=== PATIENT | female | born 1960 | race Caucasian/White ===

== ENCOUNTER 2016-10-18 05:24 | Day surgery (SDC) | payer OTHER ==
[2016-10-16 11:32] LABS: APPEARANCE,URINE SLIGHTLY-CLOUDY; BILIRUBIN,URINE NEGATIVE (NEGATIVE); GLUCOSE, URINE NEGATIVE (NEGATIVE); KETONES,URINE NEGATIVE (NEGATIVE); LEUKOCYTE ESTERASE,URINE NEGATIVE (NEGATIVE); NITRITE,URINE NEGATIVE (NEGATIVE); PROTEIN,URINE NEGATIVE (NEGATIVE); URINE SPECIFIC GRAVITY 1.021; UROBILINOGEN,URINE NEGATIVE mg/dL (<2.0)
[2016-10-16 12:30] LABS: HEMATOCRIT 37.2 % (36.0-47.0); HEMOGLOBIN 12.4 g/dL (12.0-15.5); MEAN CORPUSCULAR HEMOGLOBIN 30.6 pg (27.0-33.4); MEAN CORPUSCULAR HGB CONC 33.4 g/dL (32.0-36.0); MEAN CORPUSCULAR VOLUME 92 fl (80-97); RED BLOOD COUNT 4.06 10^6/uL (3.72-5.28); RED CELL DISTRIBUTION WIDTH 13.5 % (11.5-14.0); WHITE BLOOD COUNT 4.3 10^3/uL (4.0-10.5)
[2016-10-16 13:00] LABS: ANION GAP 8 (5-19); BLOOD UREA NITROGEN 15 mg/dL (7-20); CALCIUM 8.9 mg/dL (8.4-10.2); CARBON DIOXIDE 27 mmol/L (22-30); CHLORIDE 104 mmol/L (98-107); CREATININE RESULT 0.76 mg/dL (0.52-1.25); GLUCOSE 81 mg/dL (75-110); POTASSIUM 4.8 mmol/L (3.6-5.0)
--- NOTE | 2016-10-16 16:58 | EKG REPORT ---
SEVERITY:- OTHERWISE NORMAL ECG - SINUS RHYTHM LEFT AXIS DEVIATION : Confirmed by: Jade Crowder MD 16-Oct-2016 16:57:30
[~2016-10-18 05:24] MED LIST: CLINDAMYCIN 600 MG/D5W RTU 600 MG/50 ML RTUPB IV PRN; LIDOCAINE 0.5% INJ-PF (5 MG/ML) 50 ML SDV INJ PRN; RINGERS SOLUTION,LACTATED 1,000 ML IV PRN
[2016-10-18] MEDS ORDERED: EPHEDRINE SULFATE INJ 50 MG/1 ML AMPULE ONE (07:15)
[2016-10-18] MEDS ORDERED: FENTANYL CITRATE INJ/PF 100 MCG/2 ML AMPUL ONE (07:15)
[2016-10-18] MEDS ORDERED: ONDANSETRON HCL INJ/PF 4 MG/2 ML SDV ONE (07:15)
[2016-10-18] MEDS ORDERED: PROPOFOL INJ 200 MG/20 ML VIAL IV ONE (07:15)
[2016-10-18] MEDS ORDERED: MIDAZOLAM 2 MG/2 ML INJ ONE (07:15)
[2016-10-18] MEDS ORDERED: MEPERIDINE HCL/PF INJ 25 MG/1 ML DISP.SYRIN IV PRN (07:39)
[2016-10-18] MEDS ORDERED: DIPHENHYDRAMINE HCL 50 MG/ML VIAL IV PRN (07:39)
[2016-10-18] MEDS ORDERED: PROMETHAZINE HCL INJ 25 MG/1 ML VIAL IV PRN (07:39)
[2016-10-18] MEDS ORDERED: FENTANYL CITRATE INJ/PF 100 MCG/2 ML AMPUL IV PRN ×3 (07:39)
[2016-10-18] MEDS ORDERED: OXYCODONE-ACETAMINOPHEN 5-325 MG TABLET PO PRN ×2 (08:11→08:12)
[2016-10-18] MEDS ORDERED: PROMETHAZINE HCL INJ 25 MG/1 ML VIAL IM PRN (08:13)
--- NOTE | 2016-10-18 08:33 | OPERATIVE REPORT E ---
Operative Report NAME: KATTY LLOYD : 1960 AGE: 55Y DATE OF SURGERY: 10/18/2016 ROOM: PREOPERATIVE DIAGNOSES: 1. Menorrhagia. 2. Left endometrial polyp. POSTOPERATIVE DIAGNOSES: 1. Menorrhagia. 2. Left endometrial polyp. PROCEDURE: Hysteroscopy, dilatation and curettage. SURGEON: ALIYA EDWARDS M.D. COMPLICATIONS: None. ANESTHESIA: LMA. ESTIMATED BLOOD LOSS: Fifteen mL. FINDINGS: Posterior endometrial polyp, approximately 7 mm in diameter. No other lesions or issues were noted in the uterus. Normal tubal ostia appreciated. No adnexal masses were noted on EUA. Bladder was left undrained. INDICATION FOR PROCEDURE: The patient had progressive dysmenorrhea and menorrhagia. Ultrasound demonstrated what appeared to be a large endocervical polyp present. Outpatient biopsy was benign. Pap smear normal. The usual risks of bleeding, infection, anesthesia, and damage to organs and tissue were discussed with the patient and understood. PROCEDURE: The patient was taken to the operating room, placed in the modified lithotomy position. Adequate anesthesia was ascertained. Prepped and draped in the usual manner for a hysteroscopy. After surgical timeout performed, EUA performed. The cervix was dilated to admit operative hysteroscope. Hysteroscopy ensued. This revealed essentially normal upper uterus. In the endometrial cavity, a small endometrial polyp was noted in the lower portion of the cavity. Photographs were taken and biopsy ensued with curettage. It was productive of a mild amount of tissue and sent to the lab. Upon completion of this, all instruments were removed. Uterine integrity was confirmed. Patient awakened and taken to recovery room in stable condition. DICTATING PHYSICIAN: ALIYA EDWARDS M.D. [id number] PHY#: [id number] ID: [id number] JOB#: [id number] ACCT: [id number] cc:ALIYA EDWARDS M.D. >
[2016-10-18] MEDS ORDERED: IBUPROFEN 800 MG TABLET PO SCH (10:00)
[2016-10-18 10:06] VITALS: BP 132/79
== END 2016-10-18 09:30 | disposition home or self-care (01) ==
LOC: OROUT 05:24
PROVIDERS: ATTEND Specialist
PROC: 0UDB8ZX Extraction of Endometrium, Via Natural or Artificial Opening Endoscopic, Diagnostic (ICD-10-PCS; principal; 2016-10-18 07:15)
DX: N94.4 Primary dysmenorrhea (principal); N84.0 Polyp of corpus uteri; M06.9 Rheumatoid arthritis, unspecified; J45.909 Unspecified asthma, uncomplicated; E07.9 Disorder of thyroid, unspecified; D64.9 Anemia, unspecified; Z88.0 Allergy status to penicillin
CPT/HCPCS: 93005; 86900; 86901; 36415; 86850; 85027; 80048; 81001; 88305 ×2; 93010; 58558; J2250; J3010; J2405; J2704; 952; J3490